=== PATIENT | female | born 1965 | race Caucasian/White ===

== ENCOUNTER → 2016-09-07 | Day surgery (SDC) | payer OTHER ==
--- NOTE | 2016-09-08 13:22 | PATH ---
Surgical Pathology Report Patient Name: MARICEL KELLOGG [facility]. Rec. #: [id number] /Age/Gender: 1965 (Age: 51) / F Account: [id number] Location: [facility] Taken: 09/07/2016 Received: 09/07/2016 Reported: 09/08/2016 Physicians: Aissatou Bailey M.D. Specimen(s) Received A: RIGHT BREAST SPECIMEN WITH CALCIFICATIONS. SITE 1-SUBAREOLAR B: RIGHT BREAST SPECIMEN WITHOUT CALCIFICATIONS. SITE 1-SUBAREOALAR C: RIGHT BREAST SPECIMEN WITH CALCIFICATIONS. SITE 2 UPPER OUTER D: RIGHT BREAST SPECIMEN WITHOUT CALCIFICATIONS. SITE 2 UPPER OUTER Clinical History Microcalcification Final Diagnosis A. RIGHT BREAST, SITE 1 SUBAREOLAR WITH CALCIFICATION, STEREOTACTIC NEEDLE CORE BIOPSY: BENIGN BREAST TISSUE WITH FIBROCYSTIC CHANGES INCLUDING USUAL DUCTAL HYPERPLASIA (UDH), COLUMNAR CELL CHANGE AND COLUMNAR CELL HYPERPLASIA, STROMAL FIBROSIS, AND DUCTAL DILATATION. MICROCALCIFICATIONS ARE IDENTIFIED. B. RIGHT BREAST, SITE 1 SUBAREOLAR WITHOUT CALCIFICATION, STEREOTACTIC NEEDLE CORE BIOPSY: BENIGN BREAST TISSUE WITH FIBROCYSTIC CHANGES INCLUDING USUAL DUCTAL HYPERPLASIA (UDH), COLUMNAR CELL CHANGE AND COLUMNAR CELL HYPERPLASIA, STROMAL FIBROSIS, AND DUCTAL DILATATION. MICROCALCIFICATIONS ARE IDENTIFIED. C. RIGHT BREAST, SITE 2 UPPER OUTER WITH CALCIFICATION, STEREOTACTIC NEEDLE CORE BIOPSY: BENIGN BREAST TISSUE WITH FIBROCYSTIC CHANGES INCLUDING USUAL DUCTAL HYPERPLASIA (UDH), COLUMNAR CELL CHANGE AND COLUMNAR CELL HYPERPLASIA, STROMAL FIBROSIS, AND DUCTAL DILATATION. MICROCALCIFICATIONS ARE IDENTIFIED. D. RIGHT BREAST, SITE 2 UPPER OUTER WITHOUT CALCIFICATION, STEREOTACTIC NEEDLE CORE BIOPSY: BENIGN BREAST TISSUE WITH FIBROCYSTIC CHANGES INCLUDING USUAL DUCTAL HYPERPLASIA (UDH), COLUMNAR CELL CHANGE, STROMAL FIBROSIS, AND DUCTAL DILATATION. RARE MICROCALCIFICATIONS ARE IDENTIFIED. Comment: Recommend correlation with clinical and radiologic findings and follow up as clinically indicated. Electronically Signed Edgar Adams M.D. Gross Description A. Received in formalin, labeled "right breast with calcifications site 1 subareolar," are 5 espitia-yellow, cylindrical portions of fibroadipose tissue ranging from 1.1-2.5 cm. in length and averaging 0.2 cm. in diameter. The specimen is submitted in toto in one cassette. B. Received in formalin, labeled "right breast without calcifications site 1 subareolar," are 5 espitia-yellow, cylindrical portions of fibroadipose tissue ranging from 0.5-2.0 cm. in length and averaging 0.2 cm. in diameter. The specimen is submitted in toto in one cassette. C. Received in formalin, labeled "right breast with calcifications site 2 upper outer," are 5 espitia-yellow, cylindrical portions of fibroadipose tissue ranging from 0.9-2.5 cm. in length and averaging 0.2 cm. in diameter. The specimen is submitted in toto in one cassette. D. Received in formalin, labeled "right breast without calcifications site 2 upper outer," are 3 espitia-yellow, cylindrical portions of fibroadipose tissue ranging from 1.8-3.0 cm. in length and averaging 0.2 cm. in diameter. The specimen is submitted in toto in one cassette. Time to formalin fixation: 5 minutes Total formalin fixation time: Approximately 6 hours. 09/07/201609/07/2016
--- NOTE | 2016-09-09 06:52 | OP ---
DATE OF OPERATION: 09/07/2016 PREOPERATIVE DIAGNOSIS: Abnormal right mammography. POSTOPERATIVE DIAGNOSIS: Abnormal right mammography. PROCEDURE: Right stereotactic needle biopsy with clips x2. SURGEON: Aissatou Caldera MD ANESTHESIA: Local. COMPLICATIONS: None. DISPOSITION: Stable at the end of the procedure. INDICATIONS: Patient presented with a screening mammogram that noted a cluster of microcalcifications in the upper outer and subareolar right breast. Recommendation was for needle biopsy of both of these. The procedure was discussed with her, including the need for clips. PROCEDURE IN DETAIL: Patient was brought to [facility] [place] and laid prone on the OR table. Using the cranial approach, both the calcifications were identified within the same window. First, subareolar calcifications were noted and a sterile prep was obtained. A target was chosen. There was a positive stroke margin. Using Betadine and 1% lidocaine, an 8-gauge Suros device was used to take several cores of this area. Cores showed calcifications within them. These were handled with the usual calcification protocol and a T-shaped clip was deployed in the area. Hemostasis was assured with direct pressure. Next, because the 2nd area was also seen within the same paddle we did not move the paddle, but the 2nd area was identified. Again, a sterile prep was obtained. A target was chosen. There was a positive stroke margin. Using Betadine and 1% lidocaine, an 8-gauge Suros device was used to take several cores from this area. Again, cores showed calcifications within them on specimen radiograph. Therefore, a bar-shaped clip was deployed in the area. Hemostasis was assured with direct pressure. Both incisions were closed with Steri-Strips. She tolerated the procedure well and left the breast imaging center in good condition. AISSATOU CALDERA M.D. [id number]
== END | disposition home or self-care (01) ==
LOC: FMAMMOTONE 09:23
PROVIDERS: ATTEND Surgery
PROC: 0HBT3ZX Excision of Right Breast, Percutaneous Approach, Diagnostic (ICD-10-PCS; principal; 2016-09-07)
DX: N60.81 Other benign mammary dysplasias of right breast (principal); N60.31 Fibrosclerosis of right breast; N64.89 Other specified disorders of breast; R92.1 Mammographic calcification found on diagnostic imaging of breast
CPT/HCPCS: 19081; 19082; 88305-TC